=== PATIENT | male | born 1955 | race Caucasian/White ===

== ENCOUNTER 2018-02-05 12:02 | Emergency (ER) | payer BC, OTHER ==
[2018-02-05] MEDS ORDERED: DIAZEPAM 5 MG/ML 2 ML INJ IVP STA (12:16)
[2018-02-05] MEDS ORDERED: ACETAMINOPHEN IV (For NPO) 1,000 MG in EMPTY BAG 1 BAG IVPB STA (12:16)
[2018-02-05] MEDS ORDERED: SODIUM CHLORIDE 0.9% 1,000 ML IV STA (12:16)
[2018-02-05] MEDS ORDERED: KETOROLAC 30 MG/ML 1 ML VIAL IVP STA (12:16)
--- NOTE | 2018-02-05 12:27 | ED ---
General Adult HPI - General Stated complaint: back injury Time Seen by Provider: 02/05/18 12:09 Source: RN notes reviewed, old records reviewed - History of Present Illness Initial comments: This is a 62-year-old male to the ER for evaluation. Patient does say for evasive severe sudden onset of back pain. A she has no history of back pain, states he was helping friends move a large window when he felt a pop in his back he states even his friends heard a loud sound, he felt his left knee left leg may be given little that he did not fall. Patient initially and immediately had spasm causing him to go to the ground. No loss of bowel or bladder. Patient complaining of mild back pain at this time worsening tries to sit up or move - Related Data Home Medications Medication Instructions Recorded Confirmed Doxycycline [Vibramycin] 50 mg PO DAILY 11/24/15 02/05/18 Multivitamins, Thera [Multivitamin] 1 tab PO DAILY 11/24/15 02/05/18 Naproxen Sodium [Aleve] 440 mg PO DAILY PRN 02/05/18 02/05/18 valACYclovir [Valtrex] 500 mg PO DAILY 02/05/18 02/05/18 Allergies Allergy/AdvReac Type Severity Reaction Status Date / Time ibuprofen [From Motrin] Allergy Swelling Verified 02/05/18 13:23 Review of Systems ROS Statement: Those systems with pertinent positive or pertinent negative responses have been documented in the HPI. ROS Other: All systems not noted in ROS Statement are negative. Past Medical History Past Medical History: Skin Disorder Additional Past Medical History / Comment(s): rosacea History of Any Multi-Drug Resistant Organisms: None Reported Additional Past Surgical History / Comment(s): colonoscopies Past Anesthesia/Blood Transfusion Reactions: No Reported Reaction Smoking Status: Former smoker - Past Family History Mother Family Medical History: Cancer Additional Family Medical History / Comment(s): leukemia General Exam General appearance: alert, in no apparent distress Head exam: Present: atraumatic, normocephalic, normal inspection Eye exam: Present: normal appearance, PERRL, EOMI. Absent: scleral icterus, conjunctival injection, periorbital swelling ENT exam: Present: normal exam, mucous membranes moist Neck exam: Present: normal inspection. Absent: tenderness, meningismus, lymphadenopathy Respiratory exam: Present: normal lung sounds bilaterally. Absent: respiratory distress, wheezes, rales, rhonchi, stridor Cardiovascular Exam: Present: regular rate, normal rhythm, normal heart sounds. Absent: systolic murmur, diastolic murmur, rubs, gallop, clicks GI/Abdominal exam: Present: soft, normal bowel sounds. Absent: distended, tenderness, guarding, rebound, rigid Extremities exam: Present: normal inspection, full ROM, normal capillary refill. Absent: tenderness, pedal edema, joint swelling, calf tenderness Back exam: Present: normal inspection, paraspinal tenderness (Lumbar spine) Neurological exam: Present: alert, oriented X3, CN II-XII intact Psychiatric exam: Present: normal affect, normal mood Skin exam: Present: warm, dry, intact, normal color. Absent: rash Course Vital Signs 02/05/18 12:08 Temperature 97.7 F Pulse Rate 68 Respiratory 18 Rate Blood Pressure 127/68 O2 Sat by Pulse 97 Oximetry - Reevaluation(s) Reevaluation #1: 02/05/18 12:27 Symptoms improved Medical Decision Making - Medical Decision Making 62-year-old male to the ER for evaluation of acute back pain while lifting heavy object, no CT findings to account for patient's back pain, does have muscle spasm in the paraspinal muscles. Patient able to ambulate can be discharged home no neurological deficit on exam - Radiology Data Radiology results: report reviewed (CT lumbosacral spine negative for acute disease), image reviewed Disposition Clinical Impression: Mechanical back pain, Strain of lumbar region Disposition: HOME SELF-CARE Condition: Good Instructions: Acute Low Back Pain (ED) Is patient prescribed a controlled substance at d/c from ED?: No Referrals: Tomy Pérez MD [Primary Care Provider] - 1-2 days
--- NOTE | 2018-02-05 13:38 | CT ---
EXAMINATION TYPE: CT lumbar spine wo con DATE OF EXAM: 02/05/2018 1:21 PM COMPARISON: NONE HISTORY: Low back pain post lifting large bay window CT DLP: 1546.1 mGycm. This is for the sacrum and lumbar spine. Automated exposure control for dose reduction was used. TECHNIQUE: Unenhanced CT of the lumbar spine was performed. Bone and soft tissue window settings are submitted as well as coronal and sagittal reconstructions. FINDINGS: There is mild patchy sclerosis of the iliac bones and focal sclerotic osseous lesion of the L4 vertebral body measuring 8 mm. Patchy sclerosis is seen throughout the remainder of the vertebrae of the thoracic spine with degenerative endplate changes at L5-S1. Lumbar spine maintains normal cristina tebral body heights and alignment. Visualized ribs and transverse processes appear unremarkable. L1-L2: Normal disc space height. No disc herniation protrusion or central stenosis. No facet joint arthropathy. No evidence for foraminal encroachment. L2-L3: There is a small broad-based disc bulge resulting in mild bilateral neural foraminal narrowing . No significant spinal canal stenosis. L3-L4: There is a broad-based disc bulge, ligamentum flavum buckling, and facet arthropathy creating moderate bilateral neural foraminal narrowing and mild spinal canal stenosis. No focality on CT. L4-L5: There is a broad-based disc bulge, facet arthropathy, and ligamentum flavum buckling creating moderate neural foraminal narrowing bilaterally and mild spinal canal stenosis. No focal air lucency and CT. L5-S1: There is a small posterior disc osteophyte complex and facet arthropathy creating moderate jax ateral neural foraminal narrowing and mild spinal canal stenosis. No discrete herniation is seen on C T although this is better evaluated with MR. IMPRESSION: 1. No discrete disc herniation on CT. Although this finding is better evaluated with MRI. 2. No evidence of acute fracture or malalignment of the lumbar spine. 3. Multilevel degenerative disc disease resulting in mild spinal canal stenosis from L3 through S1 in variable degrees of neural foraminal narrowing as described above. 4. Focal sclerotic lesion not L4 measuring 8 mm and patchy sclerosis of the osseous structures. Furth er evaluation with MRI with and without contrast to assess for bone marrow replacing process or nucle ar medicine bone scan could be performed. Correlation with PSA is also recommended.
--- NOTE | 2018-02-05 13:44 | CT ---
EXAMINATION TYPE: CT sacrum wo con DATE OF EXAM: 02/05/2018 COMPARISON: NONE HISTORY: Low back pain post lifting large bay window CT DLP: 1546.1 mGycm Automated exposure control for dose reduction was used. FINDINGS: Severe degenerative disc disease L5-S1 with vacuum disc. Facet arthropathy noted. Foraminal encroachm ent suspected. Disc bulging L4-L5 suspected. The marrow appears somewhat heterogeneous. Mixed areas of lucency and sclerosis noted. Osseous structures are intact. There is diffuse osteopenia. No acute fracture. No dislocation. Prosta te gland appears enlarged. IMPRESSION: 1. SEVERE DEGENERATIVE DISC DISEASE L5-S1. DISC BULGING AND PROBABLE CANAL STENOSIS L4-5 AND L5-S1 AVALOS SPECTED. 2. MARKED HYPERTROPHY OF THE PROSTATE LAND. 3. HETEROGENEOUS MARROW APPEARANCE CORRELATE WITH THE MRI TO ASSESS FOR MARROW OCCUPYING PROCESS.
[2018-02-05] MEDS ORDERED: MORPHINE SULFATE 4 MG/ML SYRINGE IVP STA (13:57)
[2018-02-05 14:37] VITALS: RESP 20
[2018-02-05] MEDS ORDERED: HYDROcodone/APAP 5-325MG 1 EACH TAB PO STA (16:28)
[2018-02-05 18:16] VITALS: BP 145/65; PULSE 77; TEMP 98.3
== END 2018-02-05 18:14 | disposition home or self-care (01) ==
LOC: EC 12:02
DX: S39.012A Strain of muscle, fascia and tendon of lower back, initial encounter (principal); L98.9 Disorder of the skin and subcutaneous tissue, unspecified; Z88.6 Allergy status to analgesic agent; Z79.899 Other long term (current) drug therapy; Z87.891 Personal history of nicotine dependence; X50.0XXA Overexertion from strenuous movement or load, initial encounter
CPT/HCPCS: 99284; 96374; 96375 ×3; 96361; 72131; 72192; J2270; J3360; J1885; J0131

== ENCOUNTER → 2018-04-05 | Outpatient (CLI) | payer OTHER ==
--- NOTE | 2018-04-05 17:25 | XR ---
EXAMINATION TYPE: XR KUB DATE OF EXAM: 04/05/2018 COMPARISON: NONE HISTORY: Right flank pain TECHNIQUE: 2 views FINDINGS: There is no sign of intestinal obstruction or pneumoperitoneum. There is retained fecal mat erial in the colon. There is no evidence of a mass. I see no pathologic calcifications over the kidne ys. IMPRESSION: Nonacute abdomen.
== END | disposition home or self-care (01) ==
LOC: RADXRMAIN 16:32
PROVIDERS: ATTEND Urology
DX: N23 Unspecified renal colic (principal)
CPT/HCPCS: 74018

== ENCOUNTER → 2018-04-19 | Outpatient (CLI) | payer OTHER ==
--- NOTE | 2018-04-19 16:12 | CT ---
EXAMINATION TYPE: CT abdomen pelvis wo con DATE OF EXAM: 04/19/2018 COMPARISON: CT spine 02/05/2018 HISTORY: 62-year-old male Abdominal pain, history of kidney stones CT DLP: 653.4 mGycm. Automated exposure control for dose reduction was used. TECHNIQUE: Contiguous axial scanning of the abdomen and pelvis without IV contrast. Coronal and sagit kyle reconstructions performed. FINDINGS: Heart normal size without pericardial effusion. Tiny hiatal hernia. Lung bases clear without pleural effusion. Noncontrast appearance of the liver, gallbladder, adrenal glands, spleen, and pancreas show no gross body. 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 2 ureters are seen extending down into the pelvis probably combining just prior to the UVJ. There are a couple parapelvic cysts left kidney measuring up to 1.6 cm. No contour deforming renal lesion and no nephrolithiasis or hydronephrosis. No dilated small bowel, free fluid, or free air. No mesenteric or retroperitoneal lymphadenopathy. Mild to moderate stool burden without pericolonic inflammatory change. Patulous bilateral inguinal canals, left greater than right. The bladder is urine distended. Prostate gland measures 6.4 x 6.3 cm prominently impressing on the posterior bladder base. Left-sided pelvic phleboliths. No abnormal fluid collection in the pelvis or pelvic lymphadenopathy. Bones: Osteopenia. Mild degenerative changes of the hips. Some patchy sclerotic areas such as in the right side of the sacrum, in the iliac bones, and elsewhere in the lumbar spine probably represent pr ominent trabecular markings on a background of osteopenia. One of these areas within L4 vertebral bod y suggestive of a bone island with stellate margins. Superior endplate compression deformity of T12 i s new from 02/05/2018. IMPRESSION: 1. Incidental duplex right renal collecting system. The 2 ureters likely joint in the pelvis just pr ior to the UVJ. 2. No nephrolithiasis or hydronephrosis. 3. Pronounced prostatomegaly (6.4 cm). Correlate with PSA values, physical exam findings, if patient 's symptoms. 4. Patchy areas of sclerosis throughout the osseous structures should also be correlated for with PS A values to exclude the possibility of underlying prostate cancer and sclerotic metastases. 5. Superior endplate fracture deformity of T12 is new from 02/05/2018 and could be a subacute fracture . Correlate for any focal pain at this level. Minimal retropulsion into the ventral spinal canal with out canal compromise.
== END | disposition home or self-care (01) ==
LOC: RADCTMAIN 14:52
PROVIDERS: ATTEND Urology
DX: N40.0 Benign prostatic hyperplasia without lower urinary tract symptoms (principal)
CPT/HCPCS: 74176

== ENCOUNTER → 2020-12-07 | Outpatient (CLI) | payer MEDICARE, OTHER ==
[2020-12-07 09:09] LABS: Appearance,Urine Clear (Clear); Bilirubin,Urine Negative (Negative); Blood,Urine Trace (Negative); Color,Urine Yellow; Glucose,Urine (UA) Negative (Negative); Ketones,Urine Negative (Negative); Leukocyte Esterase,Urine Negative (Negative); Mucus,Urine Rare /hpf; Nitrite,Urine Negative (Negative); PH, Urine 5.5 (5.0-8.0); Protein,Urine Negative (Negative); RBC,Urine 1 /hpf (0-5); Specific Gravity,Urine 1.022 (1.001-1.035); Urobilinogen,Urine <2.0 mg/dL (<2.0); WBC,Urine 2 /hpf (0-5)
[2020-12-07 14:36] LABS: Basophils # (A) 0.01 X 10*3/uL (0.00-0.10); Basophils % (A) 0.3 %; Eosinophils # (A) 0.08 X 10*3/uL (0.04-0.35); Eosinophils % (A) 2.3 %; HCT 41.2 % (39.6-50.0); HGB 13.3 g/dL (13.0-17.0); Lymphocytes # (A) 1.12 X 10*3/uL (0.90-5.00); Lymphocytes % (A) 31.5 %; MCH 31.1 pg (27.0-32.0); MCHC 32.3 g/dL (32.0-37.0); MCV 96.5 fL (80.0-97.0); Mean Platelet Volume 9.6 fL (9.5-12.2); Monocytes # (A) 0.22 X 10*3/uL (0.20-1.00); Monocytes % (A) 6.2 %; Neutrophils # (A) 2.11 X 10*3/uL (1.80-7.70); Neutrophils % (A) 59.4 %; Platelet Count 313 X 10*3/uL (140-440); RBC 4.27 X 10*6/uL (4.40-5.60); RDW 12.8 % (11.5-14.5); WBC 3.55 X 10*3/uL (4.50-10.00)
[2020-12-07 16:23] LABS: African American GFR (CKD) 90.5 (60.0-200.0); Albumin 4.2 g/dL (3.80-4.90); Anion Gap 6.3 mmol/L (4.00-12.00); Calcium 8.8 mg/dL (8.7-10.3); Carbon Dioxide 28.7 mmol/L (21.6-31.8); Chol/HDL Ratio 4.53; Globulin 2.1 g/dL (1.6-3.3); LDL Cholesterol,Calculated 91.6 mg/dL (0.0-131.0); Non-African American GFR(CKD) 78.1 (60.0-200.0); Potassium 4.2 mmol/L (3.5-5.5); Total Bilirubin 0.5 mg/dL (0.2-1.2); Total Protein 6.3 g/dL (6.2-8.2); VLDL Calculation 21.4 mg/dL (5.00-40.00)
== END | disposition home or self-care (01) ==
LOC: LABWHC1 08:04
PROVIDERS: ATTEND Internal Medicine
DX: Z00.01 Encounter for general adult medical examination with abnormal findings (principal); E55.9 Vitamin D deficiency, unspecified; R97.20 Elevated prostate specific antigen [PSA]
CPT/HCPCS: 36415; 80053; 80061; 81001; 82306; 84153; 84154; 85025

== ENCOUNTER 2020-12-14 09:50 | Day surgery (SDC) | payer OTHER ==
[2020-12-10 10:49] VITALS: BMI 27.1
[~2020-12-14 09:50] MED LIST: LACTATED RINGERS 1,000 ML IV SCH
[2020-12-14 10:26] VITALS: RESP 16; TEMP 97.4
[2020-12-14] MEDS ORDERED: LIDOCAINE 1% (10MG/ML) FOR IV START INTRADERMA ONE (10:33)
[2020-12-14] MEDS ORDERED: PROPOFOL 10 MG/ML 20 ML VIAL IV ONE (11:23)
--- NOTE | 2020-12-14 11:50 | P.PCN ---
Date of Procedure: 12/14/20 Description of Procedure: BRIEF HISTORY: Patient is a 65-year-old male presenting for outpatient colonoscopy for history of colon polyps. Last colonoscopy performed in 2016 significant for polypectomy. No change in bowel habits, blood per rectum or family history of colon cancer reported. PROCEDURE PERFORMED: Colonoscopy. PREOPERATIVE DIAGNOSIS: Personal history of colon polyps, last colonoscopy in 2016. ESTIMATED BLOOD LOSS: Minimal. IV sedation per Anesthesia. PROCEDURE: After informed consent was obtained, the patient, was brought into the endoscopy unit. IV sedation was administered by Anesthesia under continuous monitoring. Digital rectal examination was normal. Initially the Olympus CF-190 flexible video colonoscope was then inserted in the rectum, gradually advanced into the cecum without any difficulty. Careful examination was performed as the scope was gradually being withdrawn. Ileocecal valve and the appendiceal orifice were visualized and appeared normal. Prep was good with some liquid stool throughout the colon treated with lavage and suction. Mucosa of the cecum, ascending colon, transverse colon, descending colon, sigmoid colon, and rectum appeared normal, with a few scattered diverticula noted in the sigmoid colon. Retroflexion was pe rformed in the rectum and no lesions were seen, low-grade internal hemorrhoids. The patient tolerated the procedure well. IMPRESSION: Mild sigmoid diverticulosis. Otherwise normal-appearing colon from rectum to cecum. RECOMMENDATIONS: Findings of this examination were discussed with the patient and his family. Okay to resume diet. Okay to resume medications. Recommend repeat colonoscopy in 5 years for personal history of colon polyps.
[2020-12-14 12:04] VITALS: BP 145/91; PULSE 85
== END 2020-12-14 12:19 | disposition home or self-care (01) ==
LOC: ORWHC2ENDO 09:50
PROVIDERS: ATTEND Internal Medicine
DX: Z12.11 Encounter for screening for malignant neoplasm of colon (principal); K57.30 Diverticulosis of large intestine without perforation or abscess without bleeding; K64.8 Other hemorrhoids; Z86.010 Personal history of colon polyps; Z98.890 Other specified postprocedural states; Z79.899 Other long term (current) drug therapy; Z88.6 Allergy status to analgesic agent
CPT/HCPCS: J2704; G0105; 45378

== ENCOUNTER → 2021-09-01 | Outpatient (CLI) | payer OTHER ==
[2021-09-01 12:56] LABS: Basophils % (A) 0 %; Eosinophils # (A) 0.1 k/uL (0-0.7); Eosinophils % (A) 2 %; HGB 14.5 gm/dL (13.0-17.5); Lymphocytes # (A) 1.3 k/uL (1.0-4.8); Lymphocytes % (A) 29 %; MCH 31.6 pg (25.0-35.0); MCHC 33.7 g/dL (31.0-37.0); MCV 93.7 fL (80.0-100.0); Mean Platelet Volume 7.5; Monocytes # (A) 0.2 k/uL (0-1.0); Monocytes % (A) 5 %; Neutrophils # (A) 2.7 k/uL (1.3-7.7); Neutrophils % (A) 62 %; Platelet Count 326 k/uL (150-450); RBC 4.58 m/uL (4.30-5.90); RDW 12.8 % (11.5-15.5); WBC 4.4 k/uL (3.8-10.6)
[2021-09-01 13:11] LABS: ALT 17 U/L (4-49); AST 22 U/L (17-59); African American GFR (CKD) >90 (>60 ml/min/1.73 sqM); Albumin 4.4 g/dL (3.5-5.0); Alkaline Phosphatase 258 U/L (38-126); Amylase 66 U/L (30-110); Anion Gap 8 mmol/L; Blood Urea Nitrogen 19 mg/dL (9-20); Calcium 9.3 mg/dL (8.4-10.2); Carbon Dioxide 30 mmol/L (22-30); Chloride 102 mmol/L (98-107); Glucose 89 mg/dL (74-99); Lipase 59 U/L (23-300); Non-African American GFR(CKD) 87 (>60 ml/min/1.73 sqM); Potassium 4.7 mmol/L (3.5-5.1); Sodium 140 mmol/L (137-145); Total Bilirubin 0.5 mg/dL (0.2-1.3); Total Protein 7.4 g/dL (6.3-8.2)
[2021-09-01 14:19] LABS: Erythrocyte Sedimentation Rate 17 mm/hr (0-15)
--- NOTE | 2021-09-01 14:31 | CT ---
EXAMINATION TYPE: CT abdomen pelvis wo con DATE OF EXAM: 09/01/2021 COMPARISON: 04/19/2018 HISTORY: abdominal pain CT DLP: 712.2 mGycm Examination of the solid and hollow viscera is limited given the lack of contrast. GI contrast was ad ministered. FINDINGS: LUNG BASES: No evidence for nodule. No evidence for infiltrate. LIVER/GB: The gallbladder is unremarkable. No space-occupying hepatic lesion. PANCREAS: No pancreatic mass identified. No inflammatory process seen. SPLEEN: No evidence for splenomegaly. No intrasplenic lesions seen. ADRENALS: No adrenal nodules identified. No evidence for thickening. KIDNEYS: No evidence for renal mass. No nephrolithiasis. No hydronephrosis. BOWEL: Appendix has a normal appearance. No evidence of bowel obstruction. No inflammatory process. Lymph nodes: No evidence for adenopathy greater than 1 cm. Abdominal aorta: Atheromatous changes seen. No evidence for aneurysm. Genital organs: Prostate gland enlargement noted. Other: Progressive sclerotic bony metastases seen throughout the visualized axial and appendicular [place]. IMPRESSION: 1. Diffuse progressive sclerotic bony metastatic disease. 2. Prostate gland enlargement.
== END | disposition home or self-care (01) ==
LOC: RADCTMAIN 12:02
PROVIDERS: ATTEND Family Medicine
DX: C79.51 Secondary malignant neoplasm of bone (principal); N40.0 Benign prostatic hyperplasia without lower urinary tract symptoms
CPT/HCPCS: 74176; 80053; 82150; 83690; 85025; 85652

== ENCOUNTER → 2021-09-23 | Outpatient (CLI) | payer OTHER ==
--- NOTE | 2021-09-24 07:06 | PE ---
EXAMINATION TYPE: PET CT fusion skull to thigh DATE OF EXAM: 09/23/2021 COMPARISON: CT abdomen and pelvis September 01, 2021 HISTORY: Recently diagnosed cancer of uncertain origin. TECHNIQUE: Following the intravenous administration of 8.24 mCi of F-18 FDG, whole body images are p erformed from the skull base to the midthigh. Images are reviewed on the computer in the coronal, ax ial, and sagittal planes. Reconstructed rotating images are created on independent workstation and r eviewed on the computer. A localization and attenuation correction CT is performed in conjunction w ith the PET scan. Blood glucose level equals 83. SCAN: Initial Scan FINDINGS: SKULL BASE AND NECK: No areas of abnormal hypermetabolic uptake. CHEST, MEDIASTINUM, AND HILAR REGION: No areas of abnormal hypermetabolic uptake. ABDOMEN AND PELVIS: Nonspecific mild diffuse gastric uptake without suspicious wall thickening. Yasmine l excretion is present. Some uptake along course of the distal right ureter. No abnormal hypermetabol ic uptake. OSSEOUS STRUCTURES: Diffuse sclerotic appearance to osseous structures redemonstrated. No abnormal hy permetabolic uptake. OTHER CT: Low lung volumes with mild cardiomegaly and mild lateral left basilar linear scarring and/o r atelectasis. Enlarged prostate consistent with BPH. Adjacent scattered pelvic phleboliths. Poorly distended bladde r with mild to moderate concentric wall thickening consistent with outlet obstruction related to BPH. IMPRESSION: Diffuse sclerotic osseous metastatic disease without abnormal hypermetabolic uptake ident ified primary site of neoplasm. Underlying Prostate cancer would be favored. Correlate clinically and with PSA values. Enlarged prostate gland is noted. Nonspecific gastric uptake is noted. This could b e further investigated with endoscopy if there is no prostate correlation.
== END | disposition home or self-care (01) ==
LOC: RADPETMAIN 13:59
PROVIDERS: ATTEND Nurse Practitioner Adult Health
DX: C79.51 Secondary malignant neoplasm of bone (principal); C80.1 Malignant (primary) neoplasm, unspecified; N40.0 Benign prostatic hyperplasia without lower urinary tract symptoms
CPT/HCPCS: 78815; A9552

== ENCOUNTER 2021-10-29 11:51 | Day surgery (SDC) | payer OTHER ==
[2021-10-14 11:58] VITALS: BMI 26.4
[~2021-10-29 11:51] MED LIST changes: +LIDOCAINE 1% (10MG/ML) FOR IV START INTRADERMA PRN
[2021-10-29 12:19] VITALS: TEMP 96.7
[2021-10-29] MEDS ORDERED: LIDOCAINE 1% INJ 10MG/ML (20 ML MDV) ONE (12:35)
[2021-10-29] MEDS ORDERED: fentaNYL (PF) 50 MCG/ML 2 ML AMP ONE (12:35)
[2021-10-29] MEDS ORDERED: PROPOFOL 10 MG/ML 20 ML VIAL IV ONE (12:35)
[2021-10-29] MEDS ORDERED: MIDAZOLAM 2 MG/2 ML VIAL ONE (12:35)
[2021-10-29 13:12] VITALS: RESP 16
[2021-10-29 13:23] LABS: Basophils % (A) 1 %; Eosinophils # (A) 0.1 k/uL (0-0.7); Eosinophils % (A) 2 %; HCT 45.8 % (39.0-53.0); HGB 14.8 gm/dL (13.0-17.5); Lymphocytes # (A) 1.4 k/uL (1.0-4.8); Lymphocytes % (A) 31 %; MCHC 32.3 g/dL (31.0-37.0); MCV 95.9 fL (80.0-100.0); Mean Platelet Volume 7.7; Monocytes # (A) 0.2 k/uL (0-1.0); Monocytes % (A) 4 %; Neutrophils # (A) 2.7 k/uL (1.3-7.7); Neutrophils % (A) 60 %; Platelet Count 337 k/uL (150-450); RBC 4.78 m/uL (4.30-5.90); RDW 13.7 % (11.5-15.5); Reticulocyte % 1.7 % (0.5-2.0); WBC 4.5 k/uL (3.8-10.6)
[2021-10-29 13:24] VITALS: BP 135/74; PULSE 83
--- NOTE | 2021-10-29 14:19 | PCN ---
PROCEDURE NOTE PREOPERATIVE DIAGNOSIS: Abnormal bone marrow. POSTOPERATIVE DIAGNOSIS: Abnormal bone marrow. PROCEDURE: Bone marrow aspirate and biopsy. ANESTHESIA: Local with IV systemic sedation. DETAILS: Utilizing sterile technique, the skin overlying the right iliac crest was prepared with Betadine and alcohol. After adequate sterile draping, local anesthesia and systemic sedation, a size 11, 4-inch [employer] needle was utilized to access the periosteum with ease. A total of 12 mL and 2 cm bone core biopsies were obtained. The patient tolerated the procedure well. There was no immediate procedure-related complication. Total blood loss less than 1 mL. Results pending. MMODL / IJN: [id number] /
== END 2021-10-29 13:48 | disposition home or self-care (01) ==
LOC: OR 11:51
PROVIDERS: ATTEND Internal Medicine Hematology & Oncology
DX: R93.7 Abnormal findings on diagnostic imaging of other parts of musculoskeletal system (principal)
CPT/HCPCS: 38222; 85025; 85045; J2250; J2001; J3010; J2704

== ENCOUNTER 2023-05-21 07:51 | Emergency (ER) | payer MEDICARE, OTHER ==
[2023-05-21] MEDS ORDERED: SODIUM CHLORIDE 0.9% 500 ML 500 ML IV ONE (08:09)
[2023-05-21] MEDS ORDERED: SODIUM CHLORIDE 0.9% 1,000 ML IV ONE (08:09)
--- NOTE | 2023-05-21 08:34 | ED ---
General Adult HPI - General Chief complaint: Abdominal Pain Stated complaint: Abd pain Time Seen by Provider: 05/21/23 08:00 Source: patient, RN notes reviewed, old records reviewed Mode of arrival: ambulatory Limitations: no limitations - History of Present Illness Initial comments: This is a 67-year-old male who presents emergency Department complaining of abdominal pain. Patient states at 5:00 this morning he woke up and had little achiness in the center of his abdomen. Patient states on his way to [place] the pain got excruciating and he felt very lightheaded and became diaphoretic. Patient denies any chest pain difficulty breathing shortness of breath. Patient states he has had similar pain months ago but it wasn't as bad as it is today. Patient states she does have a family history of gallbladder issues. Patient states the pain is more centralized but there is some right upper quadrant abdominal pain. Patient denies any back pain. Patient denies any nausea vomiting or diarrhea recently. Patient denies any fever chills. - Related Data Home Medications Medication Instructions Recorded Confirmed Doxycycline [Vibramycin] 50 mg PO DAILY 11/24/15 10/27/21 valACYclovir HCL [Valtrex] 500 mg PO DAILY 02/05/18 10/27/21 Pimecrolimus 1 applic TOPICAL DAILY PRN 12/10/20 10/27/21 Cholecalciferol [Vitamin D3 (25 50 mcg PO DAILY 10/14/21 10/27/21 Mcg = 1000 Iu)] Allergies Allergy/AdvReac Type Severity Reaction Status Date / Time aspirin Allergy Swelling Verified 05/21/23 07:58 ibuprofen [From Motrin] Allergy Swelling Verified 10/27/21 11:24 Review of Systems ROS Statement: Those systems with pertinent positive or pertinent negative responses have been documented in the HPI. ROS Other: All systems not noted in ROS Statement are negative. Past Medical History Past Medical History: Skin Disorder Additional Past Medical History / Comment(s): rosacea, hx gallstone History of Any Multi-Drug Resistant Organisms: None Reported Past Surgical History: Orthopedic Surgery Additional Past Surgical History / Comment(s): colonoscopies, lt knee scope x2,rt knee scope x1 Past Anesthesia/Blood Transfusion Reactions: No Reported Reaction Past Psychological History: No Psychological Hx Reported Smoking Status: Former smoker Past Alcohol Use History: None Reported Past Drug Use History: None Reported - Past Family History Mother Family Medical History: Cancer Additional Family Medical History / Comment(s): leukemia General Exam - General Exam Comments Initial Comments: GENERAL: Patient is well-developed and well-nourished. Patient is nontoxic and well- hydrated and is in moderate distress. ENT: Neck is soft and supple. No significant lymphadenopathy is noted. Oropharynx is clear. Moist mucous membranes. Neck has full range of motion without eliciting any pain. EYES: The sclera were anicteric and conjunctiva were pink and moist. Extraocular movements were intact and pupils were equal round and reactive to light. Eyelids were unremarkable. PULMONARY: Unlabored respirations. Good breath sounds bilaterally. No audible rales rhonchi or wheezing was noted. CARDIOVASCULAR: There is a regular rate and rhythm without any murmurs gallops or rubs. ABDOMEN: Patient has pain in the supra umbilical area SKIN: Skin is clear with no lesions or rashes and otherwise unremarkable. NEUROLOGIC: Patient is alert and oriented x3. Cranial nerves II through XII are grossly intact. Motor and sensory are also intact. Normal speech, volume and content. Symmetrical smile. MUSCULOSKELETAL: Normal extremities with adequate strength and full range of motion. LYMPHATICS: No significant lymphadenopathy is noted PSYCHIATRIC: Normal psychiatric evaluation. Limitations: no limitations Course Vital Signs 05/21/23 05/21/23 05/21/23 07:55 08:03 08:06 Temperature 98 F Pulse Rate 95 96 87 Respiratory 18 16 18 Rate Blood Pressure 68/47 75/50 O2 Sat by Pulse 95 93 L 93 L Oximetry 05/21/23 05/21/23 05/21/23 08:10 08:13 08:15 Temperature Pulse Rate 90 95 94 Respiratory 16 18 18 Rate Blood Pressure 75/50 111/89 81/53 O2 Sat by Pulse 93 L 93 L 93 L Oximetry 05/21/23 05/21/23 05/21/23 08:20 08:21 08:24 Temperature Pulse Rate 96 96 95 Respiratory 16 18 18 Rate Blood Pressure 75/50 85/45 78/45 O2 Sat by Pulse 94 L 95 Oximetry 05/21/23 05/21/23 05/21/23 08:27 08:30 08:32 Temperature Pulse Rate 96 98 96 Respiratory 18 15 18 Rate Blood Pressure 99/50 99/50 105/54 O2 Sat by Pulse 92 L 89 L 91 L Oximetry 05/21/23 05/21/23 05/21/23 08:40 08:50 09:00 Temperature Pulse Rate 96 100 95 Respiratory 15 18 16 Rate Blood Pressure 110/56 114/63 123/65 O2 Sat by Pulse 92 L 97 99 Oximetry 05/21/23 05/21/23 05/21/23 09:11 09:30 10:00 Temperature 97.7 F Pulse Rate 96 92 82 Respiratory 18 16 16 Rate Blood Pressure 121/71 115/63 118/68 O2 Sat by Pulse 100 100 98 Oximetry 05/21/23 05/21/23 05/21/23 10:30 11:00 11:30 Temperature Pulse Rate 87 87 Respiratory 16 18 18 Rate Blood Pressure 117/67 118/70 113/72 O2 Sat by Pulse 98 96 95 Oximetry Medical Decision Making - Medical Decision Making EKG was interpreted by myself shows a sinus rhythm at 90 bpm TX interval 236 dresses 88 QT interval 373 QTC is 421. Patient's EKG shows no ST segment elevation or depression. Was pt. sent in by a medical professional or institution (, PA, SERVICE DESK ANALYST, urgent care, hospital, or halfway...) When possible be specific @ -No Did you speak to anyone other than the patient for history (EMS, parent, family, police, friend...)? What history was obtained from this source @ -No Did you review nursing and triage notes (agree or disagree)? Why? @ -I reviewed and agree with nursing and triage notes Were old charts reviewed (outside hosp., previous admission, EMS record, old EKG, old radiological studies, urgent care reports/EKG's, halfway records)? Report findings @ -I reviewed prior transient prior lab work Differential Diagnosis (chest pain, altered mental status, abdominal pain women, abdominal pain men, vaginal bleeding, weakness, fever, dyspnea, syncope, headache, dizziness, GI bleed, back pain, seizure, CVA, palpatations, mental health, musculoskeletal)? @ -Differential Abdominal Pain Men: Appendicitis, cholecystitis, diverticulosis, ischemic bowel, pancreatitis, hepatitis, UTI, gastroenteritis, AAA, incarcerated hernia, bowel obstruction, constipation, inflammatory bowel, hepatitis, peptic ulcer disease, splenic infarction, perforated viscus, testicular torsion, this is not meant to be an all-inclusive list EKG interpreted by me (3pts min.). @ -As above X-rays interpreted by me (1pt min.). @ -None done CT interpreted by me (1pt min.). @ -CT of the abdomen and pelvis is interpreted by myself. Patient's CT showed some colitis potentially in the transverse colon U/S interpreted by me (1pt. min.). @ -None done What testing was considered but not performed or refused? (CT, X-rays, U/S, labs)? Why? @ -None What meds were considered but not given or refused? Why? @ -None Did you discuss the management of the patient with other professionals (professionals i.e. [employer], PA, SERVICE DESK ANALYST, lab, RT, psych nurse, social insurance analyst, finished carpet inspector, teacher, deck officer, lining caser)? Give summary @ -No Was smoking cessation discussed for >3mins.? @ -No Was critical care preformed (if so, how long)? @ -No Were there social determinants of health that impacted care today? How? (Homelessness, low income, unemployed, alcoholism, drug addiction, transportation, low edu. Level, literacy, decrease access to med. care, halfway, rehab)? @ -No Was there de-escalation of care discussed even if they declined (Discuss DNR or withdrawal of care, Hospice)? DNR status @ -No What co-morbidities impacted this encounter? (DM, HTN, Smoking, COPD, CAD, Cancer, CVA, ARF, Chemo, Hep., AIDS, mental health diagnosis, sleep apnea, morbid obesity)? @ -None Was patient admitted / discharged? Hospital course, mention meds given and route, prescriptions, significant lab abnormalities, going to OR and other pertinent info. @ -Patient's abdominal pain subsided while in the emergency department he ate a sandwich was feeling better and wanted to be discharged home. Undiagnosed new problem with uncertain prognosis? @ -No Drug Therapy requiring intensive monitoring for toxicity (Heparin, Nitro, Insulin, Cardizem)? @ -No Were any procedures done? @ -No Diagnosis/symptom? @ -Abdominal pain Acute, or Chronic, or Acute on Chronic? @ -Acute Uncomplicated (without systemic symptoms) or Complicated (systemic symptoms)? @ -Complicated Side effects of treatment? @ -No Exacerbation, Progression, or Severe Exacerbation? @ -No Poses a threat to life or bodily function? How? (Chest pain, USA, LA, pneumonia, PE, COPD, DKA, ARF, appy, cholecystitis, CVA, Diverticulitis, Homicidal, Suicidal, threat to staff... and all critical care pts) @ -No Diagnosis/symptom? @ -Vasovagal orthostatic Acute, or Chronic, or Acute on Chronic? @ -Acute Uncomplicated (without systemic symptoms) or Complicated (systemic symptoms)? @ -Complicated Side effects of treatment? @ -none Exacerbation, Progression, or Severe Exacerbation] @ -no Poses a threat to life or bodily function? @ -no - Lab Data Result diagrams: 05/21/23 08:15 05/21/23 08:15 Lab Results 05/21/23 05/21/23 05/21/23 Range/Units 08:15 08:15 08:30 WBC 5.4 (3.8-10.6) k/uL RBC 4.21 L (4.30-5.90) m/uL Hgb 13.1 (13.0-17.5) gm/dL Hct 39.3 (39.0-53.0) % MCV 93.5 (80.0-100.0) fL MCH 31.2 (25.0-35.0) pg MCHC 33.4 (31.0-37.0) g/dL RDW 13.5 (11.5-15.5) % Plt Count 353 (150-450) k/uL MPV 8.1 Neutrophils % 59 % Lymphocytes % 36 % Monocytes % 3 % Eosinophils % 1 % Basophils % 0 % Neutrophils # 3.2 (1.3-7.7) k/uL Lymphocytes # 2.0 (1.0-4.8) k/uL Monocytes # 0.2 (0-1.0) k/uL Eosinophils # 0.0 (0-0.7) k/uL Basophils # 0.0 (0-0.2) k/uL Sodium 139 (137-145) mmol/L Potassium 4.4 (3.5-5.1) mmol/L Chloride 106 (98-107) mmol/L Carbon Dioxide 21 L (22-30) mmol/L Anion Gap 12 mmol/L BUN 16 (9-20) mg/dL Creatinine 0.83 (0.66-1.25) mg/dL Est GFR (CKD-EPI)AfAm >90 (>60 ml/min/1.73 sqM) Est GFR (CKD-EPI)NonAf >90 (>60 ml/min/1.73 sqM) Glucose 140 H (74-99) mg/dL Plasma Lactic Acid Hang 2.0 (0.7-2.0) mmol/L Calcium 8.8 (8.4-10.2) mg/dL Total Bilirubin 0.7 (0.2-1.3) mg/dL AST 26 (17-59) U/L ALT 23 (4-49) U/L Alkaline Phosphatase 218 H (38-126) U/L Total Protein 6.6 (6.3-8.2) g/dL Albumin 3.8 (3.5-5.0) g/dL Amylase 55 (30-110) U/L Lipase 70 (23-300) U/L Urine Color Urine Appearance (Clear) Urine pH (5.0-8.0) Ur Specific Shannon (1.001-1.035) Urine Protein (Negative) Urine Glucose (UA) (Negative) Urine Ketones (Negative) Urine Blood (Negative) Urine Nitrite (Negative) Urine Bilirubin (Negative) Urine Urobilinogen (<2.0) mg/dL Ur Leukocyte Esterase (Negative) 05/21/23 Range/Units 11:31 WBC (3.8-10.6) k/uL RBC (4.30-5.90) m/uL Hgb (13.0-17.5) gm/dL Hct (39.0-53.0) % MCV (80.0-100.0) fL MCH (25.0-35.0) pg MCHC (31.0-37.0) g/dL RDW (11.5-15.5) % Plt Count (150-450) k/uL MPV Neutrophils % % Lymphocytes % % Monocytes % % Eosinophils % % Basophils % % Neutrophils # (1.3-7.7) k/uL Lymphocytes # (1.0-4.8) k/uL Monocytes # (0-1.0) k/uL Eosinophils # (0-0.7) k/uL Basophils # (0-0.2) k/uL Sodium (137-145) mmol/L Potassium (3.5-5.1) mmol/L Chloride (98-107) mmol/L Carbon Dioxide (22-30) mmol/L Anion Gap mmol/L BUN (9-20) mg/dL Creatinine (0.66-1.25) mg/dL Est GFR (CKD-EPI)AfAm (>60 ml/min/1.73 sqM) Est GFR (CKD-EPI)NonAf (>60 ml/min/1.73 sqM) Glucose (74-99) mg/dL Plasma Lactic Acid Hang (0.7-2.0) mmol/L Calcium (8.4-10.2) mg/dL Total Bilirubin (0.2-1.3) mg/dL AST (17-59) U/L ALT (4-49) U/L Alkaline Phosphatase (38-126) U/L Total Protein (6.3-8.2) g/dL Albumin (3.5-5.0) g/dL Amylase (30-110) U/L Lipase (23-300) U/L Urine Color Light Yellow Urine Appearance Clear (Clear) Urine pH 6.0 (5.0-8.0) Ur Specific Shannon 1.034 (1.001-1.035) Urine Protein Negative (Negative) Urine Glucose (UA) Negative (Negative) Urine Ketones Negative (Negative) Urine Blood Negative (Negative) Urine Nitrite Negative (Negative) Urine Bilirubin Negative (Negative) Urine Urobilinogen <2.0 (<2.0) mg/dL Ur Leukocyte Esterase Negative (Negative) Disposition Clinical Impression: Abdominal pain, Vasovagal episode Disposition: HOME SELF-CARE Instructions (If sedation given, give patient instructions): Abdominal Pain (ED) Is patient prescribed a controlled substance at d/c from ED?: No Referrals: Alex Brewster MD [Primary Care Provider] - 1-2 days Time of Disposition: 11:55
--- NOTE | 2023-05-21 08:51 | CT ---
EXAMINATION TYPE: CT abdomen pelvis w con CT DLP: 1380.1 mGycm, Automated exposure control for dose reduction was used. DATE OF EXAM: 05/21/2023 8:29 AM COMPARISON: PET/CT 09/23/2021, CT abdomen pelvis 09/01/2021 CLINICAL INDICATION:Male, 67 years old with history of abdominal pain; abd pain TECHNIQUE: Standard CT of the abdomen and pelvis following the administration of 100 cc of Isovue 3 00 IV contrast material. Coronal and sagittal reformats were performed. FINDINGS: LOWER CHEST: Unremarkable ABDOMEN LIVER: Few subcentimeter hypoattenuating structures are demonstrated throughout the liver, which are too small to accurately characterize but statistically likely to represent simple hepatic cysts GALLBLADDER AND BILE DUCTS: Unremarkable. PANCREAS: Unremarkable. SPLEEN: Unremarkable. ADRENAL GLANDS: Unremarkable. KIDNEYS AND URETERS: No evidence of hydronephrosis or renal calculus. The kidneys enhance symmetrical ly. Duplicated right collecting system. PELVIS BLADDER: Under distended, limiting evaluation. REPRODUCTIVE: Prostate is enlarged in size measuring 6.5 cm in transverse dimension. ABDOMEN & PELVIS STOMACH AND BOWEL: Stomach and duodenum are unremarkable. Circumferential wall thickening of the zabala sverse colon. Mild colonic stool burden. The appendix is within normal limits. No evidence of bowel o bstruction. PERITONEUM: No evidence of pneumoperitoneum or free fluid. VASCULATURE: Mild atherosclerotic calcifications are present throughout the abdominal aorta and its b ranches. No evidence of aortic aneurysm. MUSCULOSKELETAL: No acute osseous abnormalities. Diffusely heterogenous sclerotic appearance of the v isualized osseous structures compatible with known metastasis redemonstrated. LYMPH NODES: No gross evidence for lymphadenopathy. SOFT TISSUE/ABDOMINAL WALL: Small fat filled bilateral inguinal hernias. IMPRESSION: 1. Circumferential wall thickening of the transverse colon which may be due to nonspecific colitis f rom infectious/inflammatory process versus underdistention. 2. Diffuse heterogenous sclerotic osseous metastasis redemonstrated. 3. Prostatomegaly.
[2023-05-21 09:00] VITALS: RESP 18
[2023-05-21 09:12] VITALS: TEMP 97.7
[2023-05-21 09:17] LABS: Basophils % (A) 0 %; Eosinophils % (A) 1 %; HCT 39.3 % (39.0-53.0); HGB 13.1 gm/dL (13.0-17.5); Lymphocytes % (A) 36 %; MCH 31.2 pg (25.0-35.0); MCHC 33.4 g/dL (31.0-37.0); MCV 93.5 fL (80.0-100.0); Mean Platelet Volume 8.1; Monocytes # (A) 0.2 k/uL (0-1.0); Monocytes % (A) 3 %; Neutrophils # (A) 3.2 k/uL (1.3-7.7); Neutrophils % (A) 59 %; Platelet Count 353 k/uL (150-450); RBC 4.21 m/uL (4.30-5.90); RDW 13.5 % (11.5-15.5); WBC 5.4 k/uL (3.8-10.6)
[2023-05-21 10:21] LABS: ALT 23 U/L (4-49); AST 26 U/L (17-59); African American GFR (CKD) >90 (>60 ml/min/1.73 sqM); Albumin 3.8 g/dL (3.5-5.0); Alkaline Phosphatase 218 U/L (38-126); Amylase 55 U/L (30-110); Anion Gap 12 mmol/L; Blood Urea Nitrogen 16 mg/dL (9-20); Calcium 8.8 mg/dL (8.4-10.2); Carbon Dioxide 21 mmol/L (22-30); Chloride 106 mmol/L (98-107); Glucose 140 mg/dL (74-99); Lipase 70 U/L (23-300); Non-African American GFR(CKD) >90 (>60 ml/min/1.73 sqM); Potassium 4.4 mmol/L (3.5-5.1); Sodium 139 mmol/L (137-145); Total Bilirubin 0.7 mg/dL (0.2-1.3); Total Protein 6.6 g/dL (6.3-8.2)
[2023-05-21 11:40] LABS: Appearance,Urine Clear (Clear); Bilirubin,Urine Negative (Negative); Blood,Urine Negative (Negative); Color,Urine Light Yellow; Glucose,Urine (UA) Negative (Negative); Ketones,Urine Negative (Negative); Leukocyte Esterase,Urine Negative (Negative); Nitrite,Urine Negative (Negative); Protein,Urine Negative (Negative); Specific Gravity,Urine 1.034 (1.001-1.035); Urobilinogen,Urine <2.0 mg/dL (<2.0)
[2023-05-21 12:34] VITALS: BP 118/74; PULSE 70
== END 2023-05-21 12:39 | disposition home or self-care (01) ==
LOC: EC 07:51
DX: R55 Syncope and collapse (principal); R10.33 Periumbilical pain; Z87.891 Personal history of nicotine dependence; Z88.6 Allergy status to analgesic agent
CPT/HCPCS: 36415; 93005; 80053; 82150; 83605; 83690; 85025; 81003; 74177; 99285; Q9967

== ENCOUNTER 2023-07-26 08:59 | Day surgery (SDC) | payer MEDICARE, OTHER ==
[2023-07-25 08:58] VITALS: BMI 26.4
[2023-07-26] MEDS: LACTATED RINGERS 1,000 ML IV SCH ×2 (09:19→09:42)
[2023-07-26 09:22] VITALS: RESP 16; TEMP 97.5
[2023-07-26] MEDS ORDERED: LIDOCAINE 1% INJ 10MG/ML (20 ML MDV) ONE (09:43)
[2023-07-26] MEDS ORDERED: PROPOFOL 10 MG/ML 20 ML VIAL IV ONE (09:43)
--- NOTE | 2023-07-26 09:52 | P.PCN ---
Date of Procedure: 07/26/23 Procedure(s) Performed: BRIEF HISTORY: Patient is a 67-year-old, pleasant, white male scheduled for an upper endoscopy as a part of evaluation of intermittent episodes of epigastric pain for the last 1 year duration. He has these episodes once every 2-3 months and lasts for a few hours and resolves. Pain is usually located in the epigastric area was with nausea vomiting and symptoms resolved. In between episodes disease symptomatically. The last episode was 6 weeks ago at this time he had severe pain and epigastric area radiating to the lower abdominal area followed by diarrhea. Last colonoscopy November 2020 was unremarkable. Because of the symptoms he scheduled for an upper endoscopy today PROCEDURE PERFORMED: Esophagogastroduodenoscopy with biopsy. PREOPERATIVE DIAGNOSIS: Intermittent episodes of epigastric pain. IV sedation per anesthesia. PROCEDURE: After informed consent was obtained, the patient was brought into the endoscopy unit. IV sedation was administered by Anesthesia under continuous monitoring. Initially the Olympus GIF-140 video endoscope was inserted into the mouth. Esophagus intubated without any difficulty. It was gradually advanced into the stomach and duodenum and carefully examined. The bulb and the second part of the duodenum appeared normal. The scope at this time was withdrawn to the stomach, adequately insufflated with air, and upon careful examination, mucosa of the antrum, had mild gastritis and biopsies were done from this area. Mucosa of the body, cardia and the fundus appeared normal. The scope was then withdrawn into the esophagus. The GE junction was located at 44 cm from the incisors. 2 superficial erosions at the GE junction consistent with LA grade B reflux esophagitis. Rest of esophagus appeared normal and the patient tolerated the procedure well. IMPRESSION: 1. Mild antral gastritis. 2. 2 small superficial linear erosions in the distal esophagus consistent with LA grade B reflux esophagitis.. RECOMMENDATIONS: The findings of this examination were discussed with the patient as well as his family. He was advised to follow with the biopsy results. He'll be given a trial of Prilosec 20 mg daily to be taken half hour before breakfast and follow antireflux measures. He'll be seen in office in 2 weeks..
[2023-07-26 10:22] VITALS: BP 146/87; PULSE 85
== END 2023-07-26 10:29 | disposition home or self-care (01) ==
LOC: ORWHC2ENDO 08:59
PROVIDERS: ATTEND Internal Medicine Gastroenterology
DX: K29.50 Unspecified chronic gastritis without bleeding (principal); K21.00 Gastro-esophageal reflux disease with esophagitis, without bleeding; Z88.6 Allergy status to analgesic agent; Z79.2 Long term (current) use of antibiotics; Z79.899 Other long term (current) drug therapy; Z98.890 Other specified postprocedural states
CPT/HCPCS: 88305; 43239; J2001; J2704

== ENCOUNTER → 2024-01-16 | Outpatient (CLI) | payer OTHER ==
--- NOTE | 2024-01-17 11:49 | MR ---
EXAMINATION TYPE: MR MRCP DATE OF EXAM: 01/16/2024 8:06 AM CLINICAL INDICATION:Male, 68 years old with history of V83.8 diseases of biliary tract; PHH, Dilated bile duct. COMPARISON: Multiple CTs dating back to 2020. TECHNIQUE: Multi planar, T2-weighted imaging with and without fat saturation and chemical shift imag ing was performed of the abdomen. Then, heavily T2 weighted imaging (half-Fourier acquisition single- shot turbo spin-echo) was utilized in order to study the biliary system. Maximum intensity projectio n images were reconstructed from the original data of the biliary tree. 3D images were created on [email or web address] work station. No Gadolinium given. FINDINGS: Lower Thorax: No evidence for acute process. MRCP: * The intrahepatic ducts are mildly dilated centrally. * The common bile duct at the level of the pancreatic head measures 8 mm in size. * The common hepatic duct measures 7 mm in size. * The pancreatic duct is normal. * The gallbladder appears contracted with internal debris. The gallbladder not been distended on mul tiple prior cross-sectional imaging and may be permanently contracted. Abdomen: Liver: Minimally complex high T2 signal cystic lesion in the left hepatic lobe measuring 23 mm. Other small subcentimeter high T2 foci scattered throughout the liver parenchyma likely representing simpl e cyst. Pancreas: Unremarkable. Spleen: Unremarkable. Adrenal glands: Unremarkable. Kidneys: High T2 signal probable simple renal cysts bilaterally. Stomach and Bowel: Unremarkable as visualized. Peritoneum: No evidence of pneumoperitoneum or free fluid. Vasculature: Unremarkable. No aortic aneurysm. Musculoskeletal: The osseous structures appear intact. High T2 signal within the spine possibly repre senting vertebral body hemangiomas versus focal fat. Lymph Nodes: No gross evidence for lymphadenopathy. Abdominal wall: Unremarkable. IMPRESSION: 1. Mild dilation of the extrahepatic biliary system. The gallbladder is contracted with possible int ernal debris. Could represent chronic cholecystitis changes given the gallbladder is otherwise contra cted on imaging. Dilation of the biliary system may be physiologic due to the inability for the gallb ladder lumen distend. 2. No evidence to suggest ductal stricture, choledocholithiasis, or biliary ductal dilatation. 3. Simple appearing hepatic and renal cysts.
== END | disposition home or self-care (01) ==
LOC: RADMRIMAIN 07:08
PROVIDERS: ATTEND Surgery
DX: N28.1 Cyst of kidney, acquired (principal); K83.8 Other specified diseases of biliary tract; K82.8 Other specified diseases of gallbladder
CPT/HCPCS: 74181